=== PATIENT | male | born 1960 | race Caucasian/White ===

== ENCOUNTER 2025-05-30 07:39 | Outpatient (AMB) | payer OTHER, SELFPAY ==
--- NOTE | 2025-05-30 07:47 | A.OFFVIS_ITS ---
Intake Visit Reasons: Weak Urine stream Intake Note: New patient presents today for initial visit for weak urine stream Urology Medication:None Blood Thinner:None Antibiotic Allergies:None PVR:62ml Supervising Editor News Reel Required: No Accompanied by: Self / Same As Patient Allergies No Known Allergies Allergy (Verified 05/30/25 07:48) Medication List - Last Reconciled 05/30/25 by Denise Godinez MD lisinopril 10 mg PO DAILY HPI Comments Details: Gerald is a 65-year-old male who is here as a new patient evaluation for weak urinary stream. History of Present Illness The patient is a 65-year-old male presenting with weak urinary stream. The patient reports experiencing a weak urinary stream for approximately one year. He describes the need to urinate again about half an hour after the initial voiding. The patient has been managing the symptoms but decided to seek medical attention after a referral from his primary care physician. Plan 1. Weak Urinary Stream 2. Enlarged Prostate - Plan to perform an ultrasound to assess the size of the prostate and evaluate the bladder and kidneys. - Cystoscopy is planned to visually inspect the urethra and bladder. - Prescribe tamsulosin. Discussed potential side effects of medication, including retrograde ejaculation. - PSA test ordered to assess prostate health. [facility] Medical History (Updated 05/30/25 @ 09:01 by Denise Godinez MD) Weak urinary stream Hyperlipidemia HTN (hypertension) Review of Systems Const All systems reviewed & are unremarkable except as noted in HPI and below Reports no additional complaints Eyes Reports no additional complaints ENT Reports no additional complaints Card Reports no additional complaints Resp Reports no additional complaints GI Reports no additional complaints Reports as per HPI Musc Reports no additional complaints Skin/Breast Reports system reviewed and no additional complaints, except as documented Neuro Reports no additional complaints Psych Reports no additional complaints Endo Reports no additional complaints Buck/Lymph Reports no additional complaints Aller/Immun Reports no additional complaints Physical Exam Const General: healthy appearing, no acute distress and well developed Orientation/consciousness: patient oriented x3 HEENT Head: Yes normocephalic and Yes atraumatic Eyes Conjunctivae: conjunctivae normal Neck Neck: Yes normal visual inspection Chest Chest palpation & inspection: normal inspection of the chest Resp Effort & Inspection: normal respiratory effort Cardio Rate: regular rate GI Inspection: Yes normal to inspection Neuro General: patient oriented x3 Psych Appearance: grossly normal Affect: normal affect Assessment & Plan Assessment & Plan (1) Weak urinary stream: Code(s): R39.12 - Poor urinary stream Category: Medical (2) BPH loc w urin obs/LUTS: Code(s): N40.1 - Benign prostatic hyperplasia with lower urinary tract symptoms Category: Medical Plan Plan 1. Weak Urinary Stream 2. Enlarged Prostate - Plan to perform an ultrasound to assess the size of the prostate and evaluate the bladder and kidneys. - Cystoscopy is planned to visually inspect the urethra and bladder. - Prescribe tamsulosin. Discussed potential side effects of medication, including retrograde ejaculation. - PSA test ordered to assess prostate health. Orders: Orders PSA,Total (Free>4and<10) Today N40.1 - Benign prostatic hyperplasia with lower urinary tract symptoms US retroperitoneal comp 2 Weeks N40.1 - Benign prostatic hyperplasia with lower urinary tract symptoms, R39.12 - Poor urinary stream Patient Instructions: The patient had an opportunity to ask questions regarding treatment plan. The patient expressed understanding and agreement with the above treatment plan. The patient is aware they should contact our office by phone for worsening of their current condition or the appearance of new symptoms. Compliance is encouraged with any medications and followup testing that is ordered. It is a privilege to be allowed the opportunity to participate in the urologic care of your patient. If you have any questions or concerns regarding treatment for the above conditions please do not hesitate to contact me. The office telephone contact is [phone]. This note is constructed in part using voice recognition software. While every effort has been made to ensure accuracy nitric acid plant operator errors may have been included. Yours sincerely, Denise Godinez MD Scribe Plan - Not visible on output: Patient was informed and verbally consented to the use of an ambient scribe for clinic note documentation during this visit. Coding Level of Care Code New Pt Level 4 (89361) Diagnoses Weak urinary stream R39.12 BPH loc w urin obs/LUTS N40.1
== END 2025-05-30 09:03 | disposition home or self-care (01) ==
LOC: HO.HUSH 07:40
PROVIDERS: PCP Nurse Practitioner Family; Visit Provider Urology
DX: N40.1 Benign prostatic hyperplasia with lower urinary tract symptoms (principal); R39.12 Poor urinary stream
CPT/HCPCS: 99204

== ENCOUNTER → 2025-05-30 07:39 | Outpatient (BNVA) | payer OTHER, SELFPAY | PROVIDERS: PCP Nurse Practitioner Family; Visit Provider Urology | DX: N40.1 Benign prostatic hyperplasia with lower urinary tract symptoms (principal) | CPT/HCPCS: 81003 ==